=== PATIENT | female | born 1970 ===

== ENCOUNTER 2017-07-23 15:37 | Emergency (ER) | payer OTHER ==
[2017-07-23 15:52] VITALS: TEMP 97.8
[2017-07-23 16:09] LABS: RBC URINE 2 /hpf (0-3); URINE BILIRUBIN NEGATIVE (NEGATIVE); URINE BLOOD NEGATIVE (NEGATIVE); URINE COLOR Yellow (YELLOW); URINE GLUCOSE (UA) NORMAL (Normal); URINE KETONE NEGATIVE (NEGATIVE); URINE LEUKOCYTE ESTERASE TRACE Leu/uL (Negative); URINE PROTEIN NEGATIVE (NEGATIVE); URINE UROBILINOGEN NORMAL mg/dL (0.2-1.0); WBC URINE 4 /hpf (0-5)
[2017-07-23] MEDS ORDERED: Sodium Chloride 0.9% 1,000 ML IV ONE (16:11)
--- NOTE | 2017-07-23 16:13 | C.PDOC ---
History Of Present Illness 47 yr old female w/PMHx of GERD, presents to the ER for evaluation of intermittent epigastric pain that gradually worsen for past week with radiation to the RUQ and Right back area as well up to chest. Patient states the abdominal pain is intermittent, aching/tightness worse at night time, Patient admits, similar sx in past " has this problem for past 5-6 years". Pt sts, had US and endoscopy before with normal findings. Patient also reports of a mild headache for the past few days, " improved today". Denies fever, chills, worse headache of life, visual changes, focal deficits, neck pain, drooling, dysphagia , CP, SOB, dyspnea, diaphoresis, palpitation, vomiting, diarrhea, food intolerance, dysuria, back pain. At the time of evaluation, pt appears comfortable, not in any apparent distress. Time Seen by Provider: 07/23/17 15:47 Chief Complaint (Nursing): Abdominal Pain History Per: Patient History/Exam Limitations: no limitations Onset/Duration Of Symptoms: Days Past Medical History Reviewed: Historical Data, Nursing Documentation, Vital Signs Vital Signs: Last Vital Signs Temp 97.8 F 07/23/17 15:47 Pulse 78 07/23/17 18:43 Resp 20 07/23/17 18:43 BP 124/70 07/23/17 18:43 Pulse Ox 99 07/23/17 18:43 Family History: States: No Known Family Hx - Social History Hx Alcohol Use: No Hx Substance Use: No Review Of Systems Except As Marked, All Systems Reviewed And Found Negative. Constitutional: Negative for: Fever Gastrointestinal: Positive for: Abdominal Pain (Epigastric pain, radiating to RUQ ). Negative for: Nausea, Vomiting, Diarrhea, Constipation Genitourinary: Negative for: Dysuria, Incontinence, Hematuria Neurological: Positive for: Headache. Negative for: Weakness, Numbness Physical Exam - Physical Exam Appears: Well, Non-toxic, No Acute Distress Skin: Normal Color, Warm, Dry, No Rash Head: Normacephalic Eye(s): bilateral: PERRL Nose: No Flaring, No Discharge Oral Mucosa: Moist Throat: No Erythema, No Drooling Neck: Trachea Midline, Supple Cardiovascular: Rhythm Regular, No JVD Respiratory: No Decreased Breath Sounds, No Accessory Muscle Use, No Stridor, No Wheezing Gastrointestinal/Abdominal: Soft, Tenderness ((+) mild epigastric and RUQ), No Distention, No Guarding, No Rebound Back: No CVA Tenderness Extremity: Normal ROM, No Pedal Edema Neurological/Psych: Oriented x3, Normal Speech ED Course And Treatment - Laboratory Results Result Diagrams: 07/23/17 16:23 07/23/17 16:23 Lab Interpretation: Normal ECG: Interpreted By Me, Viewed By Me ECG Rhythm: Sinus Rhythm ECG Interpretation: Normal Interpretation Of ECG: SR@73/min, NAD, no acute T wave or ST-T changes. No old study available. O2 Sat by Pulse Oximetry: 98 (RA) Pulse Ox Interpretation: Normal - Radiology CXR: Interpreted by Me, Viewed By Me CXR Interpretation: Yes: No Acute Disease - Other Rad CXR X-Ray: Viewed By Me, Read By Radiologist Interpretation: HISTORY: epigastric pain. COMPARISON: No prior. TECHNIQUE: Chest PA and lateral. FINDINGS: LUNGS: No active pulmonary disease. There appear to be a few small rounded nodular densities in the left mid to lower lung field suggesting small granulomata. Followup at interval in 2 months could be performed to assess stability. PLEURA: No significant pleural effusion identified. No pneumothorax apparent. CARDIOVASCULAR: Normal. OSSEOUS STRUCTURES: No significant abnormalities. VISUALIZED UPPER ABDOMEN: Normal. OTHER FINDINGS: None. IMPRESSION: No active disease. Suspect few small scattered granulomata left mid to lower lung field. - CT Scan/US US - Gallbladder Other Rad Studies (CT/US): Read By Radiologist, Radiology Report Reviewed CT/US Interpretation: ccession No. : [id number]. Patient Name / ID : YANI SLATER / [id number]. Exam Date : 07/23/2017 16:40:43 ( Approved ). Study Comment : Sex / Age : F / 47Y. Creator : Forest Meza MD. Dictator : Data Control Clerk : Electrical Engineering Drafting Officer : Forest eMza MD. Approver2 : Report Date : 07/23/2017 17:40:34. My Comment : . HISTORY: epigastric, RUQ pain. COMPARISON: None. TECHNIQUE: Sonographic evaluation of the right upper quadrant of the abdomen performed. FINDINGS: LIVER: Measures approximately 16 cm in length. Smooth contour however increased echogenicity of the liver parenchyma most likely representing sequela of fatty infiltration however other infiltrative hepatocellular disease process not excluded. . There does appear to be localized fatty sparing near the gallbladder fossa as well. . No mass. No intrahepatic bile duct dilatation. Portal vein demonstrates hepatopetal flow No evidence of ascites. GALLBLADDER: Gallbladder physiologically distended. No evidence of intraluminal gallbladder calculi. No sonographic pericholecystic fluid collections or Mcdonald sign. COMMON BILE DUCT: Measures approximately 5.5 mm. No stones. No dilatation. PANCREAS: Unremarkable as visualized. No mass. No ductal dilatation. RIGHT KIDNEY: Measures approximately 11.2 x 4.0 x 5.4 Measures cm in length. Normal echogenicity. No calculus, mass, or hydronephrosis. AORTA: No aneurysmal dilatation. IVC: Unremarkable. OTHER FINDINGS: None . IMPRESSION: Findings most likely represent fatty hepatic infiltration however other infiltrative hepatocellular disease process not excluded. No evidence of cholelithiasis. Progress Note: Pt was OBS in ED for 2 housr and reports moderate improvement in sx. Pt reports, pain free now, denies epigastric abdominal pain or headache. On re-eval, afebrile, hemodynamicaly stable. non-toxic. PulsEOx 98% RA. ENT: no acute findings. neck: Supple, (-) guarding, (-) rebound. Lungs: CTA B/L, BS equal B/L. CVS: (+)S1S2, reg. Abd: benign, (-) guarding, (-) rebound. back : (-) CVA tenderness. Blood work and imaging review and appears without acute abnormalities. Pt has clinical findings c/w epigastric pain r/o GERD. Pt advised and ref. to F/uw ith PMD, GI in 2-3 days for re-eavl. return to ED if any worsening or new changes. Medical Decision Making Medical Decision Making: PLAN: * US - Gallbladder * CXR * EKG * Troponin * CBC * CMP * HCG * Urinalysis * Pepcid IVP * Protonic IVP * Reglan IV * Sodium Chloride IV Disposition Counseled Patient/Family Regarding: Studies Performed, Diagnosis, Need For Followup, Rx Given - Disposition Referrals: [facility] [Outside] Fransico Coelho MD [Staff Provider] - Disposition: HOME/ ROUTINE Disposition Time: 18:01 Condition: STABLE Additional Instructions: ENCOURAGE FLUIDS DIET RESTRICTION,A VOID SPICY, GREASY FOOD TAKE MEDICATION PRESCRIBED FOLLOW UP WITH PMD, GASTROENTEROLOGY IN 2-3 DAYS FOR RE-EVALUATION. RETURN TO ED IF ANY WORSENING OR NEW CHANGES. Prescriptions: Pantoprazole Sodium [Protonix] 40 mg PO DAILY #20 tablet. 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 - Scribe Statement The provider has reviewed the documentation as recorded by the Scribe Sakina Muller All medical record entries made by the Jeannetteibsona were at my direction and personally dictated by me. I have reviewed the chart and agree that the record accurately reflects my personal performance of the history, physical exam, medical decision making, and the department course for this patient. I have also personally directed, reviewed, and agree with the discharge instructions and disposition.
[2017-07-23 16:28] LABS: BASO # 0.2 K/uL (0.0-0.2); BASO % 1.8 % (0.0-2.0); EOS # 0.2 K/uL (0.0-0.7); EOS % 1.9 % (0.0-4.0); HEMATOCRIT 38.8 % (34.0-47.0); LYMPH # 2.8 K/uL (1.0-4.3); MEAN CELL VOLUME 82.3 fL (81.0-99.0); MEAN CORPUSCULAR HEMOGLOBIN 27.4 pg (27.0-31.0); MEAN CORPUSCULAR HGB CONC 33.3 g/dL (33.0-37.0); MEAN PLATELET VOLUME 7.9 fL (7.2-11.7); MONO # 0.5 K/uL (0.0-0.8); MONO % 5.7 % (0.0-10.0); RED CELL DISTRIBUTION WIDTH 14.7 % (11.5-14.5); WHITE BLOOD COUNT 9.2 K/uL (4.8-10.8)
[2017-07-23 16:36] LABS: CHLORIDE 101 mmol/L (98-107); SODIUM 136 mmol/L (132-148)
[2017-07-23 16:38] LABS: AMYLASE 86 U/L (30-110)
[2017-07-23 16:39] LABS: ALB/GLOB RATIO 1.2 (1.0-2.1); ALKALINE PHOSPHATASE 47 U/L (38-126); ALT/SGPT 48 U/L (9-52); AST/SGOT 28 U/L (14-36); BILIRUBIN,TOTAL 0.4 mg/dL (0.2-1.3); BLOOD UREA NITROGEN 17 mg/dL (7-17); CALCIUM 8.9 mg/dl (8.6-10.4); CARBON DIOXIDE 25 mmol/L (22-30); GFR AFRICAN-AMERICAN > 60; GLUCOSE,RANDOM 92 mg/dL (65-105); TOTAL PROTEIN 8.3 g/dL (6.3-8.3)
--- NOTE | 2017-07-23 16:43 | RAD ---
HISTORY: epigastric pain COMPARISON: No prior. TECHNIQUE: Chest PA and lateral FINDINGS: LUNGS: No active pulmonary disease. There appear to be a few small rounded nodular densities in the left mid to lower lung field suggesting small granulomata. Followup at interval in 2 months could be performed to assess stability. PLEURA: No significant pleural effusion identified. No pneumothorax apparent. CARDIOVASCULAR: Normal. OSSEOUS STRUCTURES: No significant abnormalities. VISUALIZED UPPER ABDOMEN: Normal. OTHER FINDINGS: None. IMPRESSION: No active disease. Suspect few small scattered granulomata left mid to lower lung field
--- NOTE | 2017-07-23 17:42 | US ---
HISTORY: epigastric, RUQ pain COMPARISON: None. TECHNIQUE: Sonographic evaluation of the right upper quadrant of the abdomen performed FINDINGS: LIVER: Measures approximately 16 cm in length. Smooth contour however increased echogenicity of the liver parenchyma most likely representing sequela of fatty infiltration however other infiltrative hepatocellular disease process not excluded. . There does appear to be localized fatty sparing near the gallbladder fossa as well. . No mass. No intrahepatic bile duct dilatation. Portal vein demonstrates hepatopetal flow No evidence of ascites GALLBLADDER: Gallbladder physiologically distended. No evidence of intraluminal gallbladder calculi. No sonographic pericholecystic fluid collections or Mcdonald sign COMMON BILE DUCT: Measures approximately 5.5 mm. No stones. No dilatation. PANCREAS: Unremarkable as visualized. No mass. No ductal dilatation. RIGHT KIDNEY: Measures approximately 11.2 x 4.0 x 5.4 Measures cm in length. Normal echogenicity. No calculus, mass, or hydronephrosis. AORTA: No aneurysmal dilatation. IVC: Unremarkable. OTHER FINDINGS: None . IMPRESSION: Findings most likely represent fatty hepatic infiltration however other infiltrative hepatocellular disease process not excluded. No evidence of cholelithiasis.
[2017-07-23 18:43] VITALS: BP 124/70; PULSE 78; RESP 20
[2017-07-23 19:06] VITALS: O2SAT 98
--- NOTE | 2017-07-24 13:14 | CARD ---
APPROVED REPORT EKG Measurement Heart [id number] <Conclusion> Normal sinus rhythm Normal ECG
== END 2017-07-23 18:43 | disposition home or self-care (01) ==
LOC: C.ER 15:37
DX: R10.13 Epigastric pain (principal)
CPT/HCPCS: 71020; 76705; 80053; 81001; 82150; 83690; 84484; 84703; 85025; 93005; 96361; 96374; 96375; 99284; C9113; J2765; J7040

== ENCOUNTER 2018-07-18 07:51 | Emergency (ER) | payer OTHER ==
--- NOTE | 2018-07-18 08:32 | C.PDOC ---
History Of Present Illness 48 y/o female with history of Hypothyroidism and hypercholesterolemia presents to ED with c/o itchy rash since yesterday. No known allergens including new medications, new detergents, or foods. Denies lip/tongue swelling, throat swelling, chest pain, recent travel, fever, sob, nausea, vomiting or any other complaints at this time. Has not taken any medication for the symptoms. Time Seen by Provider: 07/18/18 08:08 Chief Complaint (Nursing): Allergic Reaction History Per: Patient History/Exam Limitations: no limitations Onset/Duration Of Symptoms: Days Current Symptoms Are (Timing): Still Present Possible Cause: Unknown Past Medical History Reviewed: Historical Data, Nursing Documentation, Vital Signs Vital Signs: Last Vital Signs Temp 98.3 F 07/18/18 07:54 Pulse 112 H 07/18/18 08:11 Resp 18 07/18/18 08:11 BP 126/80 07/18/18 07:54 Pulse Ox 100 07/18/18 08:11 - Medical History PMH: Hypercholesterolemia, Hyperthyroidism Surgical History: No Surg Hx Family History: States: No Known Family Hx - Social History Hx Alcohol Use: No Hx Substance Use: No - Immunization History Hx Tetanus Toxoid Vaccination: No Hx Influenza Vaccination: No Hx Pneumococcal Vaccination: No Review Of Systems Constitutional: Negative for: Fever, Chills Cardiovascular: Negative for: Chest Pain Respiratory: Negative for: Shortness of Breath Gastrointestinal: Negative for: Nausea, Vomiting Musculoskeletal: Negative for: Back Pain Skin: Positive for: Rash Physical Exam - Physical Exam Appears: Non-toxic, No Acute Distress Skin: Warm, Dry, Rash (erythematous maculopapular rash diffusely ) Head: Atraumatic, Normacephalic Eye(s): bilateral: Normal Inspection, PERRL, EOMI Nose: Normal Oral Mucosa: Moist Tongue: Normal Appearing, No Swelling Lips: Normal Appearing, No Swelling Throat: Normal, No Erythema, No Exudate Neck: Normal ROM, Supple Chest: Symmetrical Cardiovascular: Rhythm Regular Respiratory: Normal Breath Sounds, No Accessory Muscle Use, No Rales, No Rhonchi, No Wheezing Gastrointestinal/Abdominal: Soft, No Tenderness, No Guarding, No Rebound Extremity: Normal ROM Neurological/Psych: Oriented x3, Normal Speech, Normal Cognition ED Course And Treatment O2 Sat by Pulse Oximetry: 100 (RA) Pulse Ox Interpretation: Normal Progress Note: Bneadryl, Pepcid and Solumedrol adminsitered. On re-evaluation patient is complaining of pain to injection site, Motrin given and Ice. Patient is not sob, no lip swelling or tongue swelling and has no difficulty swallowing. On re-evaluation, patient is resting comfortably, tolerating PO, has no shortness of breath, has no intra-oral swelling, no stridor. Patient notes that pruritus has improved. Patient was advised to avoid potential allergens, and to follow up with soap inspector in 1-2 days. Disposition - Disposition Disposition: HOME/ ROUTINE Disposition Time: 11:10 Condition: STABLE Additional Instructions: Vaya a castellanos mdico o la clnica en 2-5 holley sin falta, para mas evaluacin. [place] los medicamentos niko indicado. Volver a la elena de emergencia en cualquier momento si los sntomas persisten o empeoran. Prescriptions: DiphenhydrAMINE [Benadryl] 25 mg PO Q6 #20 cap predniSONE [Prednisone] 40 mg PO DAILY #8 tab Instructions: Skin Rash (DC) Forms: [employer] (Swazi) Print Language: HUNGARIAN - Clinical Impression Clinical Impression: Rash - PA / CHECKER AND PACKER / Resident Statement MD/DO has reviewed & agrees with the documentation as recorded. - Scribe Statement The provider has reviewed the documentation as recorded by the Jeannetteibsona Linares All medical record entries made by the Jeannetteibsona were at my direction and personally dictated by me. I have reviewed the chart and agree that the record accurately reflects my personal performance of the history, physical exam, medical decision making, and the department course for this patient. I have also personally directed, reviewed, and agree with the discharge instructions and disposition.
[2018-07-18 12:11] VITALS: BP 120/80; PULSE 102; RESP 17; TEMP 99
[2018-07-20 20:42] VITALS: O2SAT 100
--- NOTE | 2018-07-22 20:51 | CARD ---
APPROVED REPORT Date of service: 07/18/2018 EKG Measurement Heart [id number] <Conclusion> Normal sinus rhythm Normal ECG
== END 2018-07-18 12:13 | disposition home or self-care (01) ==
LOC: C.ER 07:51
DX: R21 Rash and other nonspecific skin eruption (principal)
CPT/HCPCS: 93005; 96372; 99285; J2930

== ENCOUNTER 2018-07-18 21:57 | Emergency (ER) | payer OTHER ==
[2018-07-18 22:29] VITALS: BP 139/97; PULSE 137; RESP 20; TEMP 98.9; O2SAT 98
--- NOTE | 2018-07-18 22:55 | C.PDOC ---
History Of Present Illness 48 y/o female presents to ED with c/o itchy rash since yesterday to chest and back. Patient states she was seen in ED earlier today and given a shot for rash. Patient states the rash is the same and looks more red. Patient states she has not taken the medications prescribed. Denies new medications, new detergents, recent travel, fever, sob, nausea, vomiting or any other complaints at this time. Time Seen by Provider: 07/18/18 22:35 Chief Complaint (Nursing): Allergic Reaction History Per: Patient History/Exam Limitations: no limitations Onset/Duration Of Symptoms: Days Current Symptoms Are (Timing): Still Present Associated Symptoms: Redness Recent travel outside of the [place]: No Past Medical History Reviewed: Historical Data, Nursing Documentation, Vital Signs Vital Signs: Last Vital Signs Temp 98.9 F 07/18/18 22:23 Pulse 137 H 07/18/18 22:23 Resp 20 07/18/18 22:23 BP 139/97 H 07/18/18 22:23 Pulse Ox 98 07/18/18 22:23 - Medical History PMH: Hypercholesterolemia, Hyperthyroidism Other Surgeries: Liposuction and hysterectomy Family History: States: Unknown Family Hx - Social History Hx Alcohol Use: No Hx Substance Use: No - Immunization History Hx Tetanus Toxoid Vaccination: No Hx Influenza Vaccination: No Hx Pneumococcal Vaccination: No Review Of Systems Constitutional: Negative for: Fever Respiratory: Negative for: Shortness of Breath Gastrointestinal: Negative for: Nausea, Vomiting Skin: Positive for: Rash Physical Exam - Physical Exam Appears: Well, Non-toxic, No Acute Distress Skin: Warm, Dry, Rash (erythematous macular papular to chest and upper back) Head: Atraumatic, Normacephalic Eye(s): bilateral: Normal Inspection Oral Mucosa: Moist Neck: Normal ROM Chest: Symmetrical Cardiovascular: Rhythm Regular, No Murmur Respiratory: Normal Breath Sounds, No Rales, No Rhonchi, No Wheezing Extremity: Bilateral: Atraumatic, Normal Color And Temperature, Normal ROM Neurological/Psych: Oriented x3, Normal Speech Gait: Steady ED Course And Treatment O2 Sat by Pulse Oximetry: 98 (RA) Pulse Ox Interpretation: Normal Medical Decision Making Medical Decision Makin48 y/o female c/o itchy rash since yesterday to chest and back. Prior chart from today reviewed. Patient was given solumedrol for rash earlier Plan: -Benadryl 50 mg PO Give patient verbal and written instructions to take Benadryl for itching. Can start prednisone tomorrow. 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 - Scribe Statement The provider has reviewed the documentation as recorded by the Scribe (Eneida Bishop) All medical record entries made by the Scribe were at my direction and personally dictated by me. I have reviewed the chart and agree that the record accurately reflects my personal performance of the history, physical exam, medical decision making, and the department course for this patient. I have also personally directed, reviewed, and agree with the discharge instructions and disposition.
== END 2018-07-18 23:30 | disposition home or self-care (01) ==
LOC: C.ER 21:57
DX: L50.0 Allergic urticaria (principal)

== ENCOUNTER 2018-08-13 05:51 | Day surgery (SDC) | payer OTHER, SELFPAY ==
[2018-08-07 12:30] VITALS: BMI 21.2
[2018-08-13] MEDS ORDERED: Bupivacaine 0.25% 20 ML INJ IJ ONE (07:17)
[2018-08-13] MEDS ORDERED: ceFAZolin IV 1 gm in Dextrose 2 GM/100 ML BAG IVPB ONE (07:17)
[2018-08-13] MEDS ORDERED: Lidocaine/Epinephrine 1% 1:100000 10 ML IJ ONE (07:18)
[2018-08-13] MEDS ORDERED: Midazolam 2 MG/2 ML VIAL ONE (07:44)
[2018-08-13] MEDS ORDERED: Propofol 10 mg/ml Inj (20 ML) ONE (07:45)
[2018-08-13] MEDS ORDERED: Rocuronium 10 mg/ml (5 ml) ONE ×2 (07:48→09:47)
[2018-08-13] MEDS ORDERED: Morphine 4 MG/ML VIAL ONE (08:54)
[2018-08-13] MEDS ORDERED: Labetalol 25mg/5ml Syringe ONE (09:01)
[2018-08-13] MEDS ORDERED: Neostigmine Methylsulfate 3mg/3ml Syringe IV ONE (10:09)
[2018-08-13] MEDS ORDERED: Lactated Ringer's 1,000 ML IV ONE (10:09)
[2018-08-13] MEDS ORDERED: HYDROmorphone 0.5 mg/0.5 ml ISec IVP PRN (10:12)
[2018-08-13] MEDS ORDERED: Dexamethasone 4 mg/1 ml IVP PRN (10:12)
[2018-08-13] MEDS ORDERED: Oxycodone/Acetaminophen 5/325 mg Tab PO PRN (10:17)
--- NOTE | 2018-08-13 10:31 | PCM.SURG1 ---
Surgeon's Initial Post Op Note - Surgeon's Notes Surgeon: Dr. Agueda Pierre Curriculum Specialist: ROBERTO Barry; Vanna Bolton PGY2 Type of Anesthesia: General Endo Pre-Operative Diagnosis: Right inguinal hernia, umbilical hernia Operative Findings: right indirect fat containing inguinal hernia, small umbilical hernia contiaining fat Post-Operative Diagnosis: same Operation Performed: robotic assisted laparoscopic right inguinal hernia repair with mesh, open umbilical direct tissue hernia repair Specimen/Specimens Removed: hernia fat contents Estimated Blood Loss: EBL {In ML}: 25 Date of Surgery/Procedure: 08/13/18 Time of Surgery/Procedure: 08:00
[2018-08-13 13:16] VITALS: BP 105/64; PULSE 79; RESP 15; TEMP 97.9; O2SAT 95
--- NOTE | 2018-08-19 13:02 | PCM.OP ---
Operative Report - Operative Report Date of Surgery/Procedure: 08/13/18 Time of Surgery/Procedure: 08:00 Surgeon: Agueda Pierre MD Agency Recruiter: Vanna Bolton DO (PGY2 resident), ULISSES Barry Anesthesia/Sedation: General endotracheal; 1% lidocaine + 0.25% Marcaine mix local anesthesia Pre-Operative Diagnosis: Right Inguinal hernia Umbilical hernia Overweight Post-Operative Diagnosis: Right Indirect Inguinal hernia Umbilical hernia Overweight Indication for Surgery: 48 year old female who presented to my office with right inguinal groin pain and hernia on the right which is symptomatic. She also has an umbilical hernia on exam. Further details of HPI in clinical chart. I have reviewed the risks and benefits of inguinal hernia repairs in detail as documented in the clinic chart. Specifically, we have noted the incidence of nerve injury and hernia recurrence. The patient consented to the procedure following these discussions and prior to the operation. Operative Findings: Right indirect inguinal hernia containing fat. 10mm umbilical hernia Procedure/Operation Description: PROCEDURE PERFORMED 1) Laparoscopic, Robotic Assisted right Inguinal Hernia Repair (Transabdominal preperitoneal, GIOVANNY procedure, Progrip mesh) 2) Primary Umbilical hernia repair DESCRIPTION OF PROCEDURE: The patient was given a preoperative dose of Ancef 2g 20 minutes before the incision. She was taken to the operating room and placed supine on the operating room table with both arms on padded armboard placed at patients side in neutral position. Following successful endotracheal intubation, small reis catheter inserted to decompress urinary bladder, no abdominal hair removal necessary, and upper body warming blanket placed to maintain body temperature. Sequential compression stockings placed for DVT prophylaxis. The abdomen was prepped and draped in sterile fashion. A time out was performed prior to incision. Abdominal entry was gained using an 8mm optically viewing trocar with A 5mm 0-degree laparoscope placed in palmers point in the left upper quadrant. All layers of the abdominal wall were seen and peritoneal entry directly visualized. The abdomen was then insufflated with C02 pneumoperitoneum to 15mmhg. 5mm 0-degree laparoscope was then inserted and the abdomen was generally inspected. There were no signs of injury from initial entry and there was not found to be any additional signs of pathology. Two additional 8mm robot working ports were then placed under direct vision following injection of local anesthesia, 1 in the right mid abdomen and the other in at the umbiliclus at the site of umbilical hernia. Once these were inserted, the patient was placed in slight trendelenberg. A face protecting foam was placed over the patient's face and the robot was docked to the patient. Robotic instruments were then inserted under direct visualization. A 30 degree robotic camera was inserted in the umbilical port, a fenestrated bipoar grasper was placed in the left lateral port, and monopolar curved scissors placed right medial port, and monopolar cautery in the left abdominal port. The peritoneum was dissected down from the abdominal wall approximately 4 cm above the hernia defect. A peritoneal flap was created using a combination of blunt and electrocautey dissection posterior to the rectus muscle,from the right umbilical fold medially to the ASIS laterally. Dissection was carried down inferiorly in midline to pubis and space of retzius dissected. Laterally the space of bogros was dissected to psoas muscle. Identification of the epigastrics was completed. The hernia was visualized and found to be lateral to the inferior epigastric vessels and the hernia was noted to be indirect in nature containing a significant amount of preperitoneal and retroperitoneal fat. The herniated fat was removed and sent of for pathology speciment. The hernial sac was gently reduced from the indirect space. The round ligament was isolated and divided at the level of the internal ring to allow appropriate mesh placement. Once this was completed, a Parietex Progrip right sided inguinal mesh ([id number]) was placed into the preperitoneal space. It was placed over the myopectineal orifice with the inferior edge in front of all peritoneum and covering. The mesh is self-fixating and no tacks were used. Once this was completed, the lower edge of the mesh were ensured to be covering the peritoneal edge. The peritoneal flap was then closed using running 2-0 v-lock barbed suture. The robot was then undocked from the patient and scrubbed back in at bedside. The ports were removed under direct vision and the abdomen desufflated. The umbilical hernia was approximately 8-10mm and not much bigger than the port, this was repaired with [id number] 0 Vicryl suture. The skin incisions were then closed with 4-0 monocryl sutures then dermabond applied to skin. The patient was extubated in the OR without incident and transferred to recovery in stable condition. I was present throughout the entirety of the case. Sponge, needle and instrument counts were correct. Reis catheter was removed at the end of case Estimated Blood Loss: 20mL Complications: none Specimen: hernia fat Discharge & Condition: above
== END 2018-08-13 13:30 | disposition home or self-care (01) ==
LOC: C.SDS 05:51
PROVIDERS: ATTEND Surgery
DX: K40.90 Unilateral inguinal hernia, without obstruction or gangrene, not specified as recurrent (principal); K42.9 Umbilical hernia without obstruction or gangrene; E66.3 Overweight
CPT/HCPCS: 49650; 49652; 88302; 88342; C1781; J0690; J1100; J1885; J2001; J2250; J2270; J2405; J2704; J2710; J3010; J7120

== ENCOUNTER 2018-12-08 16:19 | Emergency (ER) | payer OTHER ==
[2018-12-08 16:37] VITALS: RESP 18; BMI 29.2
[2018-12-08] MEDS ORDERED: Apap-Butalbital-Caffeine 325-50-40mg Tab PO STA (16:49)
[2018-12-08] MEDS ORDERED: Apap-Butalbital-Caffeine 325-50-40mg Tab ONE (16:58)
--- NOTE | 2018-12-08 17:46 | C.PDOC ---
History Of Present Illness 48 y/o female comes in to ED complaining of posterior occipital headache for approximately 1 week, not associated with any other symptoms. She denies nausea, vomiting, fever, visual changes, head injuries, or LOC. Patient reports this week she took one ibuprofen and one aleve without improvement of her headache. She denies prior history of headaches. Time Seen by Provider: 12/08/18 16:32 Chief Complaint (Nursing): Headache History Per: Patient History/Exam Limitations: no limitations Onset/Duration Of Symptoms: Days Current Symptoms Are (Timing): Still Present Past Medical History Reviewed: Historical Data, Nursing Documentation, Vital Signs Vital Signs: Last Vital Signs Temp 98.7 F 12/08/18 16:26 Pulse 86 12/08/18 16:26 Resp 18 12/08/18 16:26 BP 144/84 12/08/18 16:26 Pulse Ox 97 12/08/18 16:26 - Medical History PMH: Hypercholesterolemia, Hyperthyroidism, Rheumatoid Arthritis Family History: States: No Known Family Hx - Social History Hx Alcohol Use: No Hx Substance Use: No - Immunization History Hx Tetanus Toxoid Vaccination: No Hx Influenza Vaccination: No Hx Pneumococcal Vaccination: No Review Of Systems Constitutional: Negative for: Fever Eyes: Negative for: Vision Change Gastrointestinal: Negative for: Nausea, Vomiting Neurological: Positive for: Headache. Negative for: Other (LOC) Physical Exam - Physical Exam Appears: Non-toxic, No Acute Distress, Other (Comfortable) Skin: Warm, Dry Head: Atraumatic, Normacephalic Eye(s): bilateral: Normal Inspection, EOMI Oral Mucosa: Moist Neck: No Midline Cervical Tenderness, Supple Cardiovascular: Rhythm Regular, No Murmur Respiratory: Normal Breath Sounds, No Rales, No Rhonchi, No Wheezing Extremity: Bilateral: Atraumatic, Normal Color And Temperature, Normal ROM Neurological/Psych: Oriented x3, Normal Speech, Other (No focal deficits) ED Course And Treatment O2 Sat by Pulse Oximetry: 97 (RA) Pulse Ox Interpretation: Normal Progress Note: Patient was given fioricet. Will be discharged home. Patient is to follow up with clinic in 1-2 days. Disposition Counseled Patient/Family Regarding: Diagnosis, Need For Followup, Rx Given - Disposition Referrals: [facility] [Outside] Disposition: HOME/ ROUTINE Disposition Time: 17:45 Condition: STABLE Additional Instructions: FOLLOW UP WITH YOUR DOCTOR/CLINIC N 1-2 DAYS USE MEDICATIONS DIRECTED/NEEDED RETURN TO EMERGENCY ROOM IF SYMPTOMS BECOME WORSE SEGUIR CON CANALES MDICO / CLNICA 1-2 [facility]ICE MEDICAMENTOS SEGN DIRIGIDO / NECESARIO VUELVA A LA THUAN DE EMERGENCIA SI LOS SNTOMAS SE HACEN PEOR Prescriptions: Acetaminophen/Butalbital/Caf [Fioricet] 1 tab PO TID PRN #20 tab PRN Reason: Headache Instructions: Headache, Adult (DC) Forms: [employer] (New Zealander) Print Language: TOGOLESE - Clinical Impression Clinical Impression: Headache - Scribe Statement The provider has reviewed the documentation as recorded by the Jeannetteibsona Orellana Provider Attestation: All medical record entries made by the Jeannetteibe were at my direction and personally dictated by me. I have reviewed the chart and agree that the record accurately reflects my personal performance of the history, physical exam, medical decision making, and the department course for this patient. I have also personally directed, reviewed, and agree with the discharge instructions and disposition.
[2018-12-08 17:50] VITALS: BP 138/89; PULSE 73; TEMP 97.9
[2018-12-08 19:41] VITALS: O2SAT 97
== END 2018-12-08 18:00 | disposition home or self-care (01) ==
LOC: C.ER 16:19
DX: R51 Headache (principal); E78.00 Pure hypercholesterolemia, unspecified; M06.9 Rheumatoid arthritis, unspecified; E05.90 Thyrotoxicosis, unspecified without thyrotoxic crisis or storm

== ENCOUNTER 2018-12-30 15:08 | Emergency (ER) | payer OTHER ==
[2018-12-30 15:09] VITALS: BMI 29.2
[2018-12-30 15:31] VITALS: BP 120/68; PULSE 88; RESP 18; TEMP 98.5; O2SAT 98
--- NOTE | 2018-12-30 16:00 | C.PDOC ---
History Of Present Illness 48 year old female presents to the ED with complaint of pain and swelling to her trapezius muscle bilaterally for the past 2 weeks. Patient states that the pain is worse with heat therapies and denies taking any antiflammatory medication. She denies numbness and weakness. Time Seen by Provider: 12/30/18 15:51 Chief Complaint (Nursing): Back Pain History Per: Patient History/Exam Limitations: no limitations Onset/Duration Of Symptoms: Other (2 weeks) Current Symptoms Are (Timing): Still Present Quality Of Discomfort: "Pain" Associated Symptoms: denies: New Weakness, New Numbness Past Medical History Reviewed: Historical Data, Nursing Documentation, Vital Signs Vital Signs: Last Vital Signs Temp 98.5 F 12/30/18 15:29 Pulse 88 12/30/18 15:29 Resp 18 12/30/18 15:29 BP 120/68 12/30/18 15:29 Pulse Ox 98 12/30/18 15:29 - Medical History PMH: Hypercholesterolemia, Hyperthyroidism, Rheumatoid Arthritis Surgical History: No Surg Hx Family History: States: Unknown Family Hx - Social History Hx Alcohol Use: No Hx Substance Use: No - Immunization History Hx Tetanus Toxoid Vaccination: No Hx Influenza Vaccination: No Hx Pneumococcal Vaccination: No Review Of Systems Constitutional: Negative for: Fever, Chills, Weakness Musculoskeletal: Positive for: Shoulder Pain (bilaterally to the trapezius mu scle) Neurological: Negative for: Weakness, Numbness, Dizziness Physical Exam - Physical Exam Appears: Well, Non-toxic, No Acute Distress Skin: Normal Color, Warm, Dry Head: Atraumatic, Normacephalic Neck: Decreased ROM (due to trapezius muscle pain) Chest: Symmetrical, No Deformity Respiratory: No Accessory Muscle Use Extremity: Tenderness (bilateral trapezius area) Extremity: Bilateral: Atraumatic, Normal Color And Temperature Neurological/Psych: Oriented x3, Normal Speech, Normal Cognition ED Course And Treatment O2 Sat by Pulse Oximetry: 98 (in RA) Progress Note: Patient given Motrin 600 mg PO and an ice pack. Re-evaluation. Patient feels better. Discussed plan with patient who expresses understanding. All questions answered and there is agreement with the plan to discharge home with instructions. Patient stable for discharge. Return if symptoms persist or worsen. Medical Decision Making Medical Decision Making: b/l trapezius strain/sprain worse with heat therapies improved with NSAIDS/ice in ED continue same @ home. Disposition Doctor Will See Patient In The: Office Counseled Patient/Family Regarding: Studies Performed, Diagnosis - Disposition Referrals: [facility] [Outside] [facility] [Outside] [facility] [Outside] Disposition: HOME/ ROUTINE Disposition Time: 16:22 Condition: GOOD Additional Instructions: bolsa de hielo 1/2 hora por hora, NADA caliente no mesfin julia caliente hasta resuelto Ibuprofeno/Advil 600 mg cada 6 horas niko necessario Instructions: Muscle Strain (DC), Cervical Muscle Strain Forms: [employer] ([employer]) Print Language: TURKMEN - Clinical Impression Clinical Impression: Strain of trapezius muscle - Scribe Statement The provider has reviewed the documentation as recorded by the Scribe (Amy Rowley) All medical record entries made by the Scribe were at my direction and personally dictated by me. I have reviewed the chart and agree that the record accurately reflects my personal performance of the history, physical exam, m edical decision making, and the department course for this patient. I have also personally directed, reviewed, and agree with the discharge instructions and disposition.
== END 2018-12-30 16:15 | disposition home or self-care (01) ==
LOC: C.ER 15:08
DX: S29.012A Strain of muscle and tendon of back wall of thorax, initial encounter (principal); X58.XXXA Exposure to other specified factors, initial encounter

== ENCOUNTER 2019-01-09 11:36 | Outpatient (CLI) | payer OTHER | END 2019-01-09 11:37 | disposition home or self-care (01) | LOC: C.MAMMO 11:36 | DX: R92.8 Other abnormal and inconclusive findings on diagnostic imaging of breast (principal) ==